=== PATIENT | male | born 1970 | race Caucasian/White ===

== ENCOUNTER 2022-08-02 20:17 | Emergency (ER) | payer SELFPAY ==
[~2022-08-02] VITALS: Ht 162.6 cm; Wt 72.6 kg
[2022-08-02 21:39] VITALS: BP 145/67
--- NOTE | 2022-08-02 21:45 | NUR ---
TO LOBBY FOLLOWING TRIAGE
--- NOTE | 2022-08-02 23:46 | NUR ---
Patient being evaluated by physician
[2022-08-03] MEDS ORDERED: FLUORESCEIN OPTH STRIP 1 MG OP ONE
[2022-08-03] MEDS ORDERED: TETRACAINE HCL/PF 0.5% OPTH 4 ML BTL OP ONE (00:10)
[2022-08-03] MEDS ORDERED: LIDOCAINE MPF 1% 10 MG/ML VIAL INJ ONE (03:55)
--- NOTE | 2022-08-03 04:00 | NUR ---
PT CALLED FOR REEXAM, NO ANSWER
--- NOTE | 2022-08-03 04:30 | NUR ---
CALLED PT FOR REEXAM, CALLED IN PARKING LOT, NO ANSWER
[2022-08-03 05:45] VITALS: BP 145/67
[2022-08-03] MEDS ORDERED: AMOX-1230 PO (06:53)
[2022-08-03] MEDS ORDERED: ERYT5OIN51 OP (06:53)
== END 2022-08-03 04:30 | disposition left against medical advice (07) ==
LOC: MED 20:17
DX: S02.32XA Fracture of orbital floor, left side, initial encounter for closed fracture (principal); S02.842A Fracture of lateral orbital wall, left side, initial encounter for closed fracture; S02.69XA Fracture of mandible of other specified site, initial encounter for closed fracture; S02.40FA Zygomatic fracture, left side, initial encounter for closed fracture; S01.112A Laceration without foreign body of left eyelid and periocular area, initial encounter; W19.XXXA Unspecified fall, initial encounter; Y93.89 Activity, other specified; Y92.89 Other specified places as the place of occurrence of the external cause; Y99.8 Other external cause status
CPT/HCPCS: 70486; 99283; 99284